=== PATIENT | male | born 1945 | race Hispanic/Latino ===

== ENCOUNTER → 2017-05-09 | Outpatient (CLI) | payer MEDICARE ==
[~2017-05-09] MED LIST: ACET-2247 PO; ALPR1TAB7 PO; BISA10SU8 RC; CARV6.25 PO; CLOP75TA32 PO; DIPH1TAB24 PO; FLUT16H NASAL; FOLI1CAP2 PO; GLIM2TAB3 PO; HYDR-4060 PO; ISOS30TA6 PO; LIDO5CRE18 TP; LISI-613 PO; NITR0.4T50 SL; SEVE800T7 PO; ZOLP5TAB8 PO
== END | disposition home or self-care (01) ==
LOC: RAH 10:20
PROVIDERS: ATTEND Internal Medicine
DX: J44.9 Chronic obstructive pulmonary disease, unspecified (principal); I51.7 Cardiomegaly; M47.895 Other spondylosis, thoracolumbar region
CPT/HCPCS: 71046

== ENCOUNTER → 2017-06-06 | Outpatient (CLI) | payer MEDICARE ==
[~2017-06-06] MED LIST changes: +ALBUMIN (HUMAN) 25% 200 ML IV SCH
[2017-06-06 08:32] LABS: BASOPHILS % (AUTO) 1.3 % (0.0-5.0); EOSINOPHILS % (AUTO) 3.8 % (0.0-8.0); HEMATOCRIT 34.9 % (42-54); LYMPHOCYTES % (AUTO) 15.7 % (21.0-51.0); MEAN CORPUSCULAR HEMOGLOBIN 30.6 pg (27.0-33.0); MEAN CORPUSCULAR HGB CONC 32.9 g/dL (32.0-36.0); MEAN CORPUSCULAR VOLUME 93.2 fL (79-99); MONOCYTES % (AUTO) 10.4 % (3.0-13.0); NEUTROPHILS % (AUTO) 68.8 % (40.0-77.0); PLATELET COUNT (AUTO) 256 K/uL (130-400); RED BLOOD CELL COUNT(AUTO) 3.74 MIL/uL (4.50-6.20); WHITE BLOOD COUNT (AUTO) 12.6 K/uL (4.8-10.8)
[2017-06-06 08:42] LABS: INR 1.13 (0.85-1.15); PROTHROMBIN TIME 11.6 SEC (9.6-11.6)
[2017-06-06 08:47] LABS: ALBUMIN 2.8 g/dL (3.5-5.0); BILIRUBIN,TOTAL 0.7 mg/dL (0.2-1.0); CREATININE 5.2 mg/dL (0.5-1.5); POTASSIUM 4.7 mmol/L (3.5-5.1); TOTAL PROTEIN, SERUM 6.7 g/dL (6.0-8.3)
[2017-06-06 10:39] LABS: ALBUMIN,BODY FLUID 2.3 g/dL
[2017-06-06 10:43] LABS: APPEARANCE BODY FLUID CLEAR (CLEAR); SPECIMENTYPE,BODY FLUID ASCITES
[2017-06-06 10:44] LABS: BODY FLUID RBC 509 /cu. mm.; BODY FLUID WBC 576 /cu. mm.; COLOR,BODY FLUID YELLOW (LT YELLOW); TOTAL VOLUME,BODY FLUID 6800 mL
[2017-06-06 11:01] LABS: BF LYMPHOCYTE 12 %; BF MESOTHELIAL 81 %; BF MONOCYTE 3 %
== END | disposition home or self-care (01) ==
LOC: RAH 07:35
PROVIDERS: ATTEND Internal Medicine Gastroenterology
DX: R18.8 Other ascites (principal); J44.9 Chronic obstructive pulmonary disease, unspecified; Z79.899 Other long term (current) drug therapy
CPT/HCPCS: 36415; 49083; 80053; 82042; 84157; 85025; 85610; 87071; 87205; 87520; 88108; 89051; P9046

== ENCOUNTER 2017-07-15 08:22 | Inpatient (IN) | payer MEDICARE ==
[~2017-07-15] VITALS: Ht 167.6 cm; Wt 74.0 kg
[2017-07-15 08:45] LABS: BASOPHILS % (AUTO) 0.3 % (0.0-5.0); HEMATOCRIT 35.2 % (42-54); LYMPHOCYTES % (AUTO) 20.9 % (21.0-51.0); MEAN CORPUSCULAR HEMOGLOBIN 32.3 pg (27.0-33.0); MEAN CORPUSCULAR HGB CONC 33.3 g/dL (32.0-36.0); MEAN CORPUSCULAR VOLUME 97.1 fL (79-99); MONOCYTES % (AUTO) 5.3 % (3.0-13.0); NEUTROPHILS % (AUTO) 72.5 % (40.0-77.0); NUCLEATED RED BLOOD CELLS 0.1 % (0.0-0.19); PLATELET COUNT (AUTO) 166 K/uL (130-400); RED BLOOD CELL COUNT(AUTO) 3.62 MIL/uL (4.50-6.20); RED CELL DISTRIBUTION WIDTH 16.9 % (11.0-15.5)
[2017-07-15 08:58] LABS: ALBUMIN 3.2 g/dL (3.5-5.0); BILIRUBIN,TOTAL 0.5 mg/dL (0.2-1.0); CREATININE 6.9 mg/dL (0.5-1.5); TOTAL PROTEIN, SERUM 7.1 g/dL (6.0-8.3)
[2017-07-15 09:18] LABS: POTASSIUM 7.1 mmol/L (3.5-5.1)
[2017-07-15] MEDS ORDERED: DEXTROSE 50%-WATER 50 ML DISP.SYRIN IV ONE (09:27)
[2017-07-15] MEDS ORDERED: SODIUM POLYSTYRENE SULFONATE 15 GM/60 ML ML ONE ×2 (09:27→09:33)
[2017-07-15] MEDS ORDERED: SODIUM CHLORIDE 0.9% 50 ML IV ONE (09:28)
[2017-07-15] MEDS ORDERED: INSULIN HUMULIN R 100 UNIT/ML 3ML ONE (09:28)
[2017-07-15] MEDS ORDERED: GLUCAGON 1MG KIT 1 MG ML IM PRN (10:45)
[2017-07-15] MEDS ORDERED: HYDROMORPHONE HCL 0.5 MG/0.5 ML ML IVP PRN (10:45)
[2017-07-15] MEDS ORDERED: DEXTROSE 50%-WATER 50 ML DISP.SYRIN IV PRN (10:45)
[2017-07-15] MEDS ORDERED: ACETAMINOPHEN 325 MG TAB PO PRN (10:45)
[2017-07-15] MEDS ORDERED: ONDANSETRON HCL 4 MG/2 ML VIAL IVP PRN (10:45)
[2017-07-15] MEDS ORDERED: HYDRALAZINE HCL 20 MG/ML VIAL IV PRN (10:45)
[2017-07-15 11:10] LABS: BILIRUBIN,URINE Negative (NEGATIVE); COLOR,URINE Yellow (YELLOW); GLUCOSE, URINE (UA) 500 mg/dL (NEGATIVE); KETONES,URINE Negative (NEGATIVE); LEUKOCYTE ESTERASE ,URINE Negative (NEGATIVE); NITRATE,URINE Negative (NEGATIVE); OCCULT BLOOD,URINE Small (NEGATIVE); PH,URINE 7.5 (5.0-8.0); PROTEIN,URINE >=1000 (NEGATIVE); UROBILINOGEN,URINE 0.2 mg/dL (0.2-1.0)
[2017-07-15 11:13] LABS: APPEARANCE,URINE SLIGHTLY CLOUDY (CLEAR)
[2017-07-15 11:57] LABS: RBC,URINE 0-1 /HPF (0-1); WBC,URINE 0-1 /HPF (0-1)
[2017-07-15] MEDS ORDERED: SODIUM CHLORIDE 0.9% 1000ML 1,000 ML IV PRN (12:00)
[2017-07-15] MEDS ORDERED: 0.9% SODIUM CHLORIDE 250 ML IV BAG IV PRN (12:00)
[2017-07-15] MEDS ORDERED: ALBUMIN (HUMAN) 25% 100 ML IV PRN (12:00)
[2017-07-15 12:21] LABS: BACTERIA,URINE Few /HPF (None Seen)
[2017-07-15] MEDS ORDERED: METRONIDAZOLE 500 MG TABLET ONE (15:04)
[2017-07-15] MEDS: INSULIN R PO SS1/2 SQ SCH ×3 (16:30→21:09)
[2017-07-15 17:00] VITALS: BP 178/76
[2017-07-15 20:15] VITALS: BP 160/71
[2017-07-15] MEDS: HEPARIN SODIUM 5000UNIT/ML 1ML VIAL SQ SCH ×2 (21:00→21:09)
[2017-07-15] MEDS: METRONIDAZOLE 500 MG TABLET PO SCH ×2 (21:06→21:10)
[2017-07-15] MEDS: HYDROCODONE/ACETAMINOPHEN 5/325 MG TAB PO PRN (21:17)
[2017-07-15 22:55] VITALS: BP 174/74
[2017-07-16 04:03] LABS: HEMATOCRIT 35.6 % (42-54); MEAN CORPUSCULAR HEMOGLOBIN 32.1 pg (27.0-33.0); MEAN CORPUSCULAR HGB CONC 33.4 g/dL (32.0-36.0); PLATELET COUNT (AUTO) 177 K/uL (130-400); RED CELL DISTRIBUTION WIDTH 17.7 % (11.0-15.5); WHITE BLOOD COUNT (AUTO) 19.2 K/uL (4.8-10.8)
[2017-07-16 04:12] VITALS: BP 145/58
[2017-07-16 04:22] LABS: BAND NEUTROPHILS % (MANUAL) 3 % (0-2); EOSINOPHILS % (MANUAL) 1 % (1-6); LYMPHOCYTES % (MANUAL) 19 % (22-44); MAN.DIFF COMMENT-IMPRESSION MANUAL DIFFERENTIAL; MONOCYTES % (MANUAL) 4 % (2-9); SEGMENTED NEUTROPHILS % 73 % (40-70)
[2017-07-16 04:23] LABS: CREATININE 5.5 mg/dL (0.5-1.5); MAGNESIUM 2.7 mg/dL (1.80-2.40); PHOSPHORUS 5.7 mg/dL (2.5-4.9); PLATELET MORPHOLOGY COMMENT ADEQUATE; POTASSIUM 5.6 mmol/L (3.5-5.1)
[2017-07-16] MEDS: INSULIN R PO SS1/2 SQ SCH ×4 (05:52→20:36)
[2017-07-16] MEDS: METRONIDAZOLE 500 MG TABLET PO SCH ×3 (05:52→21:17)
[2017-07-16 08:00] VITALS: BP 164/75
[2017-07-16] MEDS: LEVOFLOXACIN 500 MG TABLET PO SCH (09:28)
[2017-07-16] MEDS: PANTOPRAZOLE SODIUM 40 MG TABLET.DR PO SCH (09:28)
[2017-07-16] MEDS ORDERED: SODIUM POLYSTYRENE SULFONATE 15 GM/60 ML ML PO SCH (09:30)
[2017-07-16] MEDS: HEPARIN SODIUM 5000UNIT/ML 1ML VIAL SQ SCH ×2 (09:35→20:29)
[2017-07-16 12:00] VITALS: BP 152/62
[2017-07-16] MEDS ORDERED: NITROGLYCERIN 0.4 MG SL TAB SL PRN (14:45)
[2017-07-16] MEDS ORDERED: HYDROCODONE/ACETAMINOPHEN 5/325 MG TAB PO PRN (14:45)
[2017-07-16] MEDS ORDERED: DIPHENOXYLATE HCL/ATROPINE 2.5/0.025 MG TAB PO PRN (14:45)
[2017-07-16] MEDS ORDERED: ACETAMINOPHEN 325 MG TAB PO PRN (14:45)
[2017-07-16] MEDS ORDERED: ZOLPIDEM TARTRATE 5 MG TAB PO SCH (14:45)
[2017-07-16] MEDS ORDERED: LIDO5CRE18 TP (14:55)
[2017-07-16] MEDS ORDERED: DIPH1TAB24 PO (14:55)
[2017-07-16] MEDS ORDERED: NITR0.4T50 SL (14:55)
[2017-07-16] MEDS ORDERED: HYDR-4060 PO (14:55)
[2017-07-16] MEDS ORDERED: FOLI1CAP2 PO (14:55)
[2017-07-16] MEDS ORDERED: BISA10SU8 RC (14:55)
[2017-07-16] MEDS ORDERED: ACET-2247 PO (14:55)
[2017-07-16] MEDS ORDERED: LISI-613 PO (14:55)
[2017-07-16] MEDS ORDERED: CLOP75TA32 PO (14:55)
[2017-07-16] MEDS ORDERED: SEVE800T7 PO (14:55)
[2017-07-16] MEDS ORDERED: ZOLP5TAB8 PO (14:55)
[2017-07-16] MEDS ORDERED: ALPR1TAB7 PO (14:55)
[2017-07-16] MEDS ORDERED: FLUT16H NASAL (14:55)
[2017-07-16] MEDS ORDERED: CARV6.25 PO (14:55)
[2017-07-16] MEDS ORDERED: GLIM2TAB3 PO (14:55)
[2017-07-16] MEDS ORDERED: ISOS30TA6 PO (14:55)
[2017-07-16 16:00] VITALS: BP 178/80
[2017-07-16] MEDS: SEVELAMER HCL 800 MG TABLET PO SCH (16:54)
[2017-07-16] MEDS: CARVEDILOL 6.25 MG TABLET PO SCH (16:54)
[2017-07-16] MEDS: FLUTICASONE PROPIONATE 50MCG/SPRAY 16 GM BOTTLE EN SCH (16:55)
[2017-07-16 20:00] VITALS: BP 152/62
[2017-07-16] MEDS: ALPRAZOLAM 1 MG TAB PO SCH (20:28)
[2017-07-16] MEDS: BISACODYL 10 MG SUPP.RECT RC SCH (20:43)
[2017-07-16] MEDS: HYDROCODONE/ACETAMINOPHEN 5/325 MG TAB PO PRN (22:15)
[2017-07-17] VITALS: BP 160/72
[2017-07-17] MEDS: FLUTICASONE PROPIONATE 50MCG/SPRAY 16 GM BOTTLE EN SCH ×2 (02:45→14:45)
[2017-07-17 04:00] VITALS: BP 158/74
[2017-07-17] MEDS ORDERED: LIDOCAINE HCL 5% OINT 36GM TUBE TP SCH (06:30)
[2017-07-17] MEDS: METRONIDAZOLE 500 MG TABLET PO SCH ×2 (07:00→14:46)
[2017-07-17] MEDS: INSULIN R PO SS1/2 SQ SCH ×3 (07:13→17:05)
[2017-07-17 07:45] VITALS: BP 160/64
[2017-07-17] MEDS: SEVELAMER HCL 800 MG TABLET PO SCH ×3 (08:10→16:57)
[2017-07-17] MEDS ORDERED: EPOETIN ALFA 2,000 UNIT/ML VIAL SQ SCH (09:00)
[2017-07-17] MEDS ORDERED: ISOSORBIDE MONO 30MG TAB SR PO SCH (09:00)
[2017-07-17] MEDS ORDERED: FOLIC ACID/VITAMIN B COMP W-C 1 MG CAPSULE PO SCH (09:00)
[2017-07-17] MEDS ORDERED: GLIMEPIRIDE 2 MG TABLET PO SCH (09:00)
[2017-07-17] MEDS ORDERED: CLOPIDOGREL BISULFATE 75 MG TAB PO SCH (09:00)
[2017-07-17] MEDS ORDERED: LISINOPRIL 20 MG TABLET PO SCH (09:00)
[2017-07-17] MEDS: PANTOPRAZOLE SODIUM 40 MG TABLET.DR PO SCH (12:06)
[2017-07-17] MEDS: LEVOFLOXACIN 500 MG TABLET PO SCH (12:07)
[2017-07-17] MEDS: HEPARIN SODIUM 5000UNIT/ML 1ML VIAL SQ SCH (12:08)
[2017-07-17] MEDS: ALPRAZOLAM 1 MG TAB PO SCH (12:09)
[2017-07-17] MEDS: BISACODYL 10 MG SUPP.RECT RC SCH (12:09)
[2017-07-17] MEDS: CARVEDILOL 6.25 MG TABLET PO SCH ×2 (12:10→16:58)
[2017-07-17] MEDS: HYDROCODONE/ACETAMINOPHEN 5/325 MG TAB PO PRN (12:20)
[2017-07-17 12:22] VITALS: BP 147/68
[2017-07-17 15:59] VITALS: BP 167/71
[2017-07-17 16:58] VITALS: BP 167/71
== END 2017-07-17 17:30 | disposition home or self-care (01) | DRG 640 ==
LOC: EDH 08:22 → EDHIP 10:09 → OBSVTOIN 10:09 → 3BH 16:57
PROVIDERS: ADMIT Internal Medicine Critical Care Medicine; ATTEND Internal Medicine Critical Care Medicine
PROC: 5A1D70Z Performance of Urinary Filtration, Intermittent, Less than 6 Hours Per Day (ICD-10-PCS; principal; 2017-07-15)
PROC: 5A1D70Z Performance of Urinary Filtration, Intermittent, Less than 6 Hours Per Day (ICD-10-PCS; 2017-07-17)
DX: E87.5 Hyperkalemia (principal); N18.6 End stage renal disease; E11.22 Type 2 diabetes mellitus with diabetic chronic kidney disease; E87.70 Fluid overload, unspecified; I12.0 Hypertensive chronic kidney disease with stage 5 chronic kidney disease or end stage renal disease; R19.7 Diarrhea, unspecified; D72.829 Elevated white blood cell count, unspecified; I25.10 Atherosclerotic heart disease of native coronary artery without angina pectoris; E78.00 Pure hypercholesterolemia, unspecified; Z99.2 Dependence on renal dialysis
CPT/HCPCS: 36415; 71045; 80048; 80053; 81001; 82948; 83735; 84100; 84484; 85025; 90935; 93005; 94660; 99291; J0885; J1170; J1644; J1815; J7070

== ENCOUNTER 2017-07-29 10:49 | Observation (INO) | payer MEDICARE ==
[~2017-07-29] VITALS: Ht 170.2 cm; Wt 71.2 kg
[~2017-07-29 10:49] MED LIST changes: -ALBUMIN (HUMAN) 25% 200 ML IV SCH
[2017-07-29 11:32] LABS: BASOPHILS % (AUTO) 0.7 % (0.0-5.0); HEMATOCRIT 31.6 % (42-54); LYMPHOCYTES % (AUTO) 25.6 % (21.0-51.0); MEAN CORPUSCULAR HEMOGLOBIN 32.8 pg (27.0-33.0); MEAN CORPUSCULAR HGB CONC 32.6 g/dL (32.0-36.0); MEAN CORPUSCULAR VOLUME 100.7 fL (79-99); MONOCYTES % (AUTO) 7.5 % (3.0-13.0); NEUTROPHILS % (AUTO) 64.2 % (40.0-77.0); NUCLEATED RED BLOOD CELLS 0.1 % (0.0-0.19); PLATELET COUNT (AUTO) 109 K/uL (130-400); RED BLOOD CELL COUNT(AUTO) 3.14 MIL/uL (4.50-6.20); RED CELL DISTRIBUTION WIDTH 20.1 % (11.0-15.5); WHITE BLOOD COUNT (AUTO) 11.2 K/uL (4.8-10.8)
[2017-07-29 11:39] LABS: ALBUMIN 3.1 g/dL (3.5-5.0); BILIRUBIN,TOTAL 0.5 mg/dL (0.2-1.0); CREATININE 7.5 mg/dL (0.5-1.5); TOTAL PROTEIN, SERUM 6.5 g/dL (6.0-8.3)
[2017-07-29 11:43] LABS: POTASSIUM 6.1 mmol/L (3.5-5.1)
[2017-07-29] MEDS ORDERED: CALCIUM GLUCONATE 1 GM/10 ML VIAL IV ONE (12:07)
[2017-07-29] MEDS ORDERED: INSULIN HUMULIN R 100 UNIT/ML 3ML ONE ×2 (12:08→12:15)
[2017-07-29 16:25] VITALS: BP 162/74
[2017-07-29] MEDS ORDERED: HYDRALAZINE HCL 20 MG/ML VIAL IV PRN (16:30)
[2017-07-29 19:00] VITALS: BP 156/66
[2017-07-29] MEDS ORDERED: ZOLPIDEM TARTRATE 5 MG TAB PO SCH (19:45)
[2017-07-29] MEDS ORDERED: FLUTICASONE PROPIONATE 50MCG/SPRAY 16 GM BOTTLE NS SCH (19:45)
[2017-07-29] MEDS ORDERED: HYDROCODONE/ACETAMINOPHEN 5/325 MG TAB PO PRN (19:45)
[2017-07-29] MEDS ORDERED: DEXTROSE 50%-WATER 50 ML DISP.SYRIN IV PRN (20:00)
[2017-07-29] MEDS ORDERED: GLUCAGON 1MG KIT 1 MG ML IM PRN (20:00)
[2017-07-29] MEDS: INSULIN HUMULIN R 100 UNIT/ML 3ML SQ SCH (20:51)
[2017-07-29] MEDS: BISACODYL 10 MG SUPP.RECT RC SCH (20:55)
[2017-07-29] MEDS: ALPRAZOLAM 1 MG TAB PO SCH (20:55)
[2017-07-29] MEDS ORDERED: SODIUM CHLORIDE 0.9% 1000ML 1,000 ML IV ONE (21:36)
[2017-07-29] MEDS: FLUTICASONE PROPIONATE 50MCG/SPRAY 16 GM BOTTLE NS SCH (21:38)
[2017-07-29] MEDS ORDERED: 0.9% SODIUM CHLORIDE 250 ML IV BAG IV PRN (22:00)
[2017-07-29] MEDS ORDERED: ALBUMIN (HUMAN) 25% 100 ML IV PRN (22:00)
[2017-07-29] MEDS ORDERED: SODIUM CHLORIDE 0.9% 1000ML 1,000 ML IV PRN (22:00)
[2017-07-29] MEDS ORDERED: MORPHINE SULFATE 2 MG/ML 1ML SYG IVP PRN (22:15)
[2017-07-29 23:00] VITALS: BP 172/83
[2017-07-30] VITALS (12 sets, daily range): BP systolic 136–155; BP diastolic 58–73
[2017-07-30 05:01] LABS: CREATININE 5.2 mg/dL (0.5-1.5); POTASSIUM 4.6 mmol/L (3.5-5.1)
[2017-07-30] MEDS: INSULIN HUMULIN R 100 UNIT/ML 3ML SQ SCH ×4 (06:30→20:46)
[2017-07-30] MEDS: SEVELAMER HCL 800 MG TABLET PO SCH ×3 (06:30→17:20)
[2017-07-30] MEDS: FLUTICASONE PROPIONATE 50MCG/SPRAY 16 GM BOTTLE NS SCH ×2 (07:52→20:46)
[2017-07-30] MEDS ORDERED: LIDOCAINE 5% TOPICAL PATCH TP SCH (09:00)
[2017-07-30] MEDS: ALPRAZOLAM 1 MG TAB PO SCH ×2 (10:41→20:44)
[2017-07-30] MEDS: FOLIC ACID/VITAMIN B COMP W-C 1 MG CAPSULE PO SCH (10:41)
[2017-07-30] MEDS: LISINOPRIL 20 MG TABLET PO SCH (10:41)
[2017-07-30] MEDS: CARVEDILOL 6.25 MG TABLET PO SCH ×2 (10:41→17:20)
[2017-07-30] MEDS: ISOSORBIDE MONO 30MG TAB SR PO SCH (10:42)
[2017-07-30] MEDS: BISACODYL 10 MG SUPP.RECT RC SCH ×2 (10:42→20:46)
[2017-07-30] MEDS: GLIMEPIRIDE 2 MG TABLET PO SCH (10:42)
[2017-07-30 12:42] LABS: INR 1.09 (0.85-1.15); PARTIAL THROMBOPLASTIN TIME 29.4 SEC (26.3-35.5); PROTHROMBIN TIME 11.4 SEC (9.6-11.6)
[2017-07-30] MEDS ORDERED: LEVOFLOXACIN 500 MG/D5W 100 ML 100 ML IV SCH (14:45)
[2017-07-30 17:00] LABS: SPECIMENTYPE,BODY FLUID ASCITES
[2017-07-30 17:01] LABS: APPEARANCE BODY FLUID CLOUDY (CLEAR); COLOR,BODY FLUID YELLOW (LT YELLOW); TOTAL VOLUME,BODY FLUID 4500 mL
[2017-07-30 17:02] LABS: BODY FLUID RBC 1573 /cu. mm.; BODY FLUID WBC 387 /cu. mm.
[2017-07-30] MEDS: HYDROCODONE/ACETAMINOPHEN 5/325 MG TAB PO PRN (17:20)
[2017-07-30 17:40] LABS: BF LYMPHOCYTE 26 %; BF MONOCYTE 4 %; BF OTHER CELLS 10
[2017-07-31] VITALS: BP 148/68
[2017-07-31 04:00] VITALS: BP 148/68
[2017-07-31] MEDS: HYDROCODONE/ACETAMINOPHEN 5/325 MG TAB PO PRN (04:07)
[2017-07-31] MEDS: INSULIN HUMULIN R 100 UNIT/ML 3ML SQ SCH (06:49)
[2017-07-31] MEDS: FLUTICASONE PROPIONATE 50MCG/SPRAY 16 GM BOTTLE NS SCH (07:52)
[2017-07-31 08:00] VITALS: BP 152/66
[2017-07-31] MEDS: FOLIC ACID/VITAMIN B COMP W-C 1 MG CAPSULE PO SCH (08:23)
[2017-07-31] MEDS: SEVELAMER HCL 800 MG TABLET PO SCH (08:23)
[2017-07-31] MEDS: CARVEDILOL 6.25 MG TABLET PO SCH (08:23)
[2017-07-31] MEDS: GLIMEPIRIDE 2 MG TABLET PO SCH (08:24)
[2017-07-31] MEDS: ISOSORBIDE MONO 30MG TAB SR PO SCH (08:24)
[2017-07-31] MEDS: LISINOPRIL 20 MG TABLET PO SCH (08:24)
[2017-07-31] MEDS: ALPRAZOLAM 1 MG TAB PO SCH (08:24)
[2017-07-31] MEDS: BISACODYL 10 MG SUPP.RECT RC SCH (08:24)
[2017-07-31 10:56] VITALS: BP 141/57
== END 2017-07-31 11:40 | disposition home or self-care (01) ==
LOC: EDH 10:49 → EDHIP 13:00 → 3BH 15:13
PROVIDERS: ADMIT Family Medicine; ATTEND Family Medicine
DX: I12.0 Hypertensive chronic kidney disease with stage 5 chronic kidney disease or end stage renal disease (principal); N18.6 End stage renal disease; E87.1 Hypo-osmolality and hyponatremia; E87.5 Hyperkalemia; I25.10 Atherosclerotic heart disease of native coronary artery without angina pectoris; E78.5 Hyperlipidemia, unspecified; E11.22 Type 2 diabetes mellitus with diabetic chronic kidney disease; Z79.84 Long term (current) use of oral hypoglycemic drugs; Z95.5 Presence of coronary angioplasty implant and graft; Z83.3 Family history of diabetes mellitus; Z82.49 Family history of ischemic heart disease and other diseases of the circulatory system; D64.9 Anemia, unspecified; E78.00 Pure hypercholesterolemia, unspecified; K74.60 Unspecified cirrhosis of liver; Z99.2 Dependence on renal dialysis; R18.8 Other ascites; Z79.899 Other long term (current) drug therapy
CPT/HCPCS: 36415 ×2; 49083; 71045; 76700; 80048; 80053; 82947; 82948 ×13; 84100; 84157; 84484; 85025; 85610; 85730; 87071; 87205; 88108; 88305; 89051; 93005; 94660; 96372; 96374; 96375; 99285; G0257; G0378 ×47; J0360; J0610; J1815 ×3; J7030; J7070; 90935

== ENCOUNTER → 2017-11-10 | Outpatient (CLI) | payer MEDICARE | END | disposition home or self-care (01) | LOC: RAH 07:50 | PROVIDERS: ATTEND Internal Medicine Gastroenterology | DX: N28.1 Cyst of kidney, acquired (principal); R18.8 Other ascites; I12.0 Hypertensive chronic kidney disease with stage 5 chronic kidney disease or end stage renal disease; N18.6 End stage renal disease; E11.9 Type 2 diabetes mellitus without complications; E78.00 Pure hypercholesterolemia, unspecified; I25.10 Atherosclerotic heart disease of native coronary artery without angina pectoris; J44.9 Chronic obstructive pulmonary disease, unspecified | CPT/HCPCS: 76700 ==

== ENCOUNTER 2018-03-02 19:39 | Emergency (ER) | payer MEDICARE | END 2018-03-02 23:43 | disposition EXP | LOC: EDH 19:39 | DX: I46.9 Cardiac arrest, cause unspecified (principal); I13.11 Hypertensive heart and chronic kidney disease without heart failure, with stage 5 chronic kidney disease, or end stage renal disease; E11.22 Type 2 diabetes mellitus with diabetic chronic kidney disease; N18.6 End stage renal disease; I25.10 Atherosclerotic heart disease of native coronary artery without angina pectoris; Z98.890 Other specified postprocedural states; Z99.2 Dependence on renal dialysis | CPT/HCPCS: 92950 ==